=== PATIENT | male | born 1970 | race Caucasian/White ===

== ENCOUNTER 2022-07-27 21:29 | Observation (INO) ==
[2022-07-27 22:02] VITALS: BMI 37.0
--- NOTE | 2022-07-27 22:09 | DR.CP ---
HPI Time Seen Time Seen by Provider: 07/27/22 22:08 PCP Primary Care Physician: STEPHEN KHAN IN [place] Complaint Chief Complaint Doctor Comments: 51 y/o male presents for evaluation. Thinks his was bitten by an 6 days ago, was in the [place], left axillary region. Had a small red spot, tried to pop it the next day, got some material out. Started to rapidly increased in size and pain the next day. Was seen at an urgent care 2 days ago , was started on clindamycin and sulfa antibiotics. Keeps getting larger, more painful. Pain is sharp, constant, does not radiate. + worse with palpation and moving. Nothing makes it better. + running fevers, having nausea and vomiting. No prior h/o abscesses or MRSA infections. Is a diabetic. Chief Complaint:: PT AMBULATORY IN ED WITH C/O ANT BITE THAT IS VERY PAINFUL AND KEEPS GETTING BIGGER DISPITE BEING ON ANTIBIOTICS. ALSO C/O CHEST PAIN AND NAUSEA. COVID-19 Coronavirus risk:travel/contact w/high risk person: No Has patient experienced Coronavirus symptoms: No Reviewed Nurses Notes Review: Yes Source History Provided: Patient Mode of Arrival Mode of Arrival: Ambulatory Timing Onset of Chief Complaint: 07/21/22 PMH PMH Past Medical History: Yes Past Medical History: Arthritis, Coronary Artery Disease, Depression, Diabetes, Dyslipidemia, Migraines, GERD, Hypertension and [place] Past Medical History Comment: ADD Past Surgical History: Yes Surgical History: CABG/Valve Surgery, Ortho Surgery and Tonsillectomy Past Surgical History Comment: BILATERAL KNEES LEFT ANKLE Family History History of Family Medical Conditions: Yes Family Medical History: Diabetes Mellitus, Cancer, [place], Coronary Artery Disease, Heart Failure and Hypertension Social History Does patient currently use any type of tobacco product: No Have you used tobacco products in the last 12 months: No Type of Tobacco Use: None Does any household member use tobacco: No Alcohol Use: Occasionally Do you use any recreational Drugs:: Yes (MARIJUANA) Lives With: Family Lives Where: Home Travel Risk Coronavirus risk:travel/contact w/high risk person: No Has patient experienced Coronavirus symptoms: No Infectious screening In the last 2 months have you had wt loss of >10#?: NO Have you had fever, night sweats or hemotysis?: No Have you traveled outside the country in the last 6 months?: No Isolation: Standard ROS Review of Systems Constitutional: Chills and Fever Eyes: No Symptoms Reported ENTM: No Symptoms Reported Respiratoy: No Symptoms Reported Cardiovascular: No Symptoms Reported Gastrointestinal/Abdominal: Nausea and Vomiting Genitourinary: No Symptoms Reported Neurological: Weakness Musculoskeletal: No Symptoms Reported Integumentary: See HPI Hematologic/Lymphatic: No Symptoms Reported All Other Systems: Reviewed and Negative PE Vitals Vitals: Temperature 97.9 F Pulse Rate 73 Respiratory Rate 18 Blood Pressure 128/70 O2 Sat by Pulse Oximetry 97 General General Appearance: Alert and Other (appears uncomfortable. ) Eyes Eye exam: PERRL and EOMI ENT ENT Exam: Mucous Membranes Moist Chest Chest Inspection: Abscess (+ large, oblong, left upper lateral chest wall, beneath left axilla. Is raised, very tender. Hot and erythematous. ) Abdominal Exam Abdominal Exam: Soft; negative Tenderness Extremities Extremities Exam: Normal Inspection; negative Edema Back Back Exam: Normal Inspection Neurologic Neurological Exam: Alert, Oriented X3 and CN II-XII Intact; negative Motor Sensory Deficit Skin Skin Exam: Warm and Dry COURSE Treatment Treatment: 51 y/o male with a large abscess of the left upper lateral chest wall, despite double antibiotics over the past two days, 15 cms x 5 cms. Appears to need drainage in the OR (very tender, as well as large). W/u initiated. Pt gien IV fluids, IV dilaudid and Zofran. 2302 - labs acceptable. WBC 11K. Will continue IV clindamycin for now, recommend admission for IV antibiotcs, and for the OR tomorrow. Consulted with Dr London, surgery. Will admit to medicine, Dr. Dia. ROR Labs Reviewed Result Diagrams: 07/27/22 22:30 07/27/22 22:30 Laboratory: WBC 11.9 X10^3/uL (3.6-10.0) H 07/27/22 22:30 RBC 5.67 X10^6/uL (4.7-6.0) 07/27/22 22:30 Hgb 15.5 g/dL (13.5-18.0) 07/27/22 22:30 Hct 46.5 % (42.0-54.0) 07/27/22 22:30 MCV 82.0 fL (80.0-100.0) 07/27/22 22:30 MCH 27.4 pg (27.0-34.0) 07/27/22 22: MCHC 33.4 g/dL (33.0-35.0) 07/27/22: RDW 15.3 % (11.6-16.5) 07/27/22: Plt Count 196 X10^3/uL (150.0-450.0) 07/27/22: MPV 9.4 fL (7.4-11.0) 07/27/22 22: Neut % (Auto) 63.7 % (42.0-75.0) 07/27/22 22: Lymph % (Auto) 17.9 % (21.0-51.0) L 07/27/22: [place] % (Auto) 13.4 % (0.0-13.0) H 07/27/22: Eos % (Auto) 4.1 % (0.9-2.9) H 07/27/22: Baso % (Auto) 0.9 % (0.2-1.0) 07/27/22: Neut # (Auto) 7.6 x10^3/uL (2.2-4.8) H 07/27/22: Lymph # (Auto) 2.1 X10^3/uL (1.3-2.9) 07/27/22: [place] # (Auto) 1.6 x10^3/uL (0.3-0.8) H 07/27/22: Eos # (Auto) 0.5 x10^3/uL (0.0-0.2) H 07/27/22: Baso # (Auto) 0.1 X10^3/uL (0.0-0.1) 07/27/22: Absolute Nucleated RBC 0.0 /100WBC 07/27/22: Sodium 136 mmol/L (136-145) 07/27/22 22: Corrected Sodium 137 mmol/L (136-145) 07/27/22: Potassium 4.2 mmol/L (3.5-5.1) 07/27/22: Chloride 98 mmol/L (98-107) 07/27/22 22:30 Carbon Dioxide 31.7 mmol/L (21-32) 07/27/22 22:30 BUN 24 mg/dL (7-18) H 07/27/22 22:30 Creatinine 1.83 mg/dL (0.70-1.30) H 07/27/22 22:30 Est GFR (MDRD) Af Amer 50 (>60) L 07/27/22 22:30 Est GFR (MDRD) Non-Af 42 (>60) L 07/27/22 22:30 Glucose 137 mg/dL (65-99) H 07/27/22 22:30 Lactic Acid 1.9 mmol/L (0.4-2.0) 07/27/22 22:30 Calcium 8.6 mg/dL (8.5-10.1) 07/27/22 22:30 Corrected Calcium 9.2 mg/dL (8.5-10.1) 07/27/22 22:30 Total Bilirubin 0.30 mg/dL (0.2-1.0) 07/27/22 22:30 AST 24 Units/L (15-37) 07/27/22 22:30 ALT 22 Units/L (12-78) 07/27/22 22:30 Alkaline Phosphatase 109 Units/L (46-116) 07/27/22 22:30 Total Protein 7.4 g/dL (6.4-8.2) 07/27/22 22:30 Albumin 3.3 g/dL (3.4-5.0) L 07/27/22 22:30 Globulin 4.1 g/dL (2.5-4.5) 07/27/22 22:30 Albumin/Globulin Ratio 0.8 Ratio (1.1-2.1) L 07/27/22 22:30 Opioid Opioid Risk Tool Age ([place] if 16-45): No History of Preadolescent Sexual Abuse: No Total: 0 Total Score Risk Category: Low Risk Copyright: Corey HAM predicting aberrant behaviors Discharge Plan Diagnosis Discharge Problem: Abscess of chest wall Discharge Plan Patient Disposition: 09 ADMITTED INPATIENT Condition: Stable Orders to Discharge Patient Discharge Orders: Transfer (Routine); Ordered 07/27/22 Ordered By: Luis Bishop
[2022-07-27] MEDS ORDERED: NS 1,000 ML IV 1,000 ML IV ONE (22:19)
[2022-07-27] MEDS ORDERED: NS 1,000 ML IV 1,000 ML ONE (22:22)
--- NOTE | 2022-07-27 22:51 | RAD ---
STUDY: FRONTAL VIEW CHESTCOMPARISON: NoneHISTORY: LEFT CHEST WALL ABSCESS (PRE-OP)FINDINGS:[Status post midline sternotomy]No focal consolidation is seen.The heart size is within normal limits.The mediastinum is unremarkable.There is no evidence of pleural effusion or gross pneumothorax.The trachea is midline.IMPRESSION:1. No focal consolidation is seen.2. The heart size is normal.Electronically signed by: Sunil Crowley (July 27, 2022 22:50:22)
[2022-07-27 22:55] LABS: BASOPHILS # (AUTO) 0.1 X10^3/uL (0.0-0.1); BASOPHILS % (AUTO) 0.9 % (0.2-1.0); EOSINOPHILS # (AUTO) 0.5 x10^3/uL (0.0-0.2); EOSINOPHILS % (AUTO) 4.1 % (0.9-2.9); HEMATOCRIT 46.5 % (42.0-54.0); HEMOGLOBIN 15.5 g/dL (13.5-18.0); LYMPHOCYTES # (AUTO) 2.1 X10^3/uL (1.3-2.9); LYMPHOCYTES % (AUTO) 17.9 % (21.0-51.0); MEAN CORPUSCULAR HEMOGLOBIN 27.4 pg (27.0-34.0); MEAN CORPUSCULAR HGB CONC 33.4 g/dL (33.0-35.0); MEAN PLATELET VOLUME 9.4 fL (7.4-11.0); MONOCYTES # (AUTO) 1.6 x10^3/uL (0.3-0.8); MONOCYTES % (AUTO) 13.4 % (0.0-13.0); NEUTROPHILS # (AUTO) 7.6 x10^3/uL (2.2-4.8); NEUTROPHILS % (AUTO) 63.7 % (42.0-75.0); PLATELET COUNT 196 X10^3/uL (150.0-450.0); RED BLOOD COUNT 5.67 X10^6/uL (4.7-6.0); RED CELL DISTRIBUTION WIDTH 15.3 % (11.6-16.5); WHITE BLOOD COUNT 11.9 X10^3/uL (3.6-10.0)
[2022-07-27] MEDS ORDERED: ZOFRAN INJ 4 MG VIAL IVP ONE (23:04)
[2022-07-27] MEDS ORDERED: DILAUDID INJ IVP ONE (23:04)
[2022-07-27 23:06] LABS: ALBUMIN 3.3 g/dL (3.4-5.0); CALCIUM 8.6 mg/dL (8.5-10.1); CARBON DIOXIDE 31.7 mmol/L (21-32); COR CA(FOR HYPOALB) 9.2 mg/dL (8.5-10.1); CREATININE 1.83 mg/dL (0.70-1.30); POTASSIUM 4.2 mmol/L (3.5-5.1); TOTAL PROTEIN 7.4 g/dL (6.4-8.2)
[2022-07-27] MEDS ORDERED: DILAUDID INJ ONE (23:07)
[2022-07-27] MEDS ORDERED: ZOFRAN INJ 4 MG VIAL ONE (23:07)
[2022-07-27 23:18] LABS: LACTIC ACID 1.9 mmol/L (0.4-2.0)
[2022-07-28] MEDS ORDERED: PROTONIX INJ 40 MG VIAL IVP ONE (00:56)
[2022-07-28] MEDS ORDERED: PROTONIX INJ 40 MG VIAL ONE (01:04)
[2022-07-28] MEDS ORDERED: CLEOCIN 600 MG IV PREMIX 600 MG/50 ML BAG IV ONE ×2 (01:15→01:17)
[2022-07-28] MEDS ORDERED: D5 1/2 NS 1,000 ML 1,000 ML IV SCH (01:50)
[2022-07-28] MEDS ORDERED: NORCO 10/325 TAB PO PRN (01:50)
[2022-07-28 01:59] VITALS: BP 120/68
[2022-07-28] MEDS ORDERED: NEURONTIN CAP 300 MG PO SCH (06:00)
[2022-07-28] MEDS ORDERED: CLEOCIN 600 MG IV PREMIX 600 MG/50 ML BAG IV SCH (08:00)
[2022-07-28] MEDS ORDERED: LISDEXAMFETAMINE 50 MG PO SCH (09:00)
[2022-07-28] MEDS ORDERED: AMARYL TAB 4 MG PO SCH (09:00)
[2022-07-28] MEDS ORDERED: GLUCOPHAGE PO SCH (09:00)
[2022-07-28] MEDS ORDERED: LEXAPRO PO SCH (09:00)
[2022-07-28] MEDS ORDERED: ZYLOPRIM PO SCH (09:00)
[2022-07-28] MEDS ORDERED: TOPROL XL PO SCH (09:00)
[2022-07-28] MEDS ORDERED: CELEBREX PO SCH (09:00)
[2022-07-28] MEDS ORDERED: ZESTRIL TAB 5 MG PO SCH (09:00)
--- NOTE | 2022-07-28 14:49 | DR.SSS ---
SHORT STAY SUMMARY Admission Date Date of Admission: 07/28/22 Discharge Date Discharge Date: 07/28/22 Admission Diagnoses Admission Diagnoses: 1. Left anterior chest and left axillary region with abscess 2. Chest pain 3. Nausea 4. Diabetes mellitus type 2 5. Hypogonadism in male 6. Hypercholesteremia 7. Hypertension 8. Adult ADD 9. Depression Discharge Diagnoses Discharge Diagnoses: 1. Patient left AMA 2. Left anterior chest and left axillary region with abscess 3. Chest pain 4. Nausea Chief Complaint Chief Complaint: Ant bite that is very painful and keeps getting bigger in the left axilla History of Present Illness History of Present Illness: This is a 51-year-old white male who presents to the emergency department complaining of ant bite to the left axilla number of days back. A few days ago he said it was like a pimple he popped and got out some white substance but since then has been getting larger more painful redder and harder. He went to the urgent care center and was put on clindamycin and Ba ctrim for treatment. He reports that the antibiotics did not help to get any better. Patient was seen in the ER here in [facility] and was subsequent admitted to the hospital. Unfortunately the patient did not stay upstairs very long as he decided to leave he took his IV out on his own and left AMA. Patient left before I got there this morning to make hospital rounds so I never even saw him. Past Medical History Past Medical History: Arthritis, Coronary Artery Disease, Depression, Diabetes, Dyslipidemia, Migraines, GERD, Hypertension and [place] Past Surgical History Surgical History: CABG/Valve Surgery, Ortho Surgery and Tonsillectomy Allergies Allergies Allergy/AdvReac Type Severity Reaction Status Date / Time Barbiturates Allergy Verified 07/27/22 22:03 codeine Allergy Verified 07/27/22 22:03 BENZOS Allergy Uncoded 07/27/22 22:03 Medications Home Medications: Barbiturates Allergy (Verified 07/27/22 22:03) codeine Allergy (Verified 07/27/22 22:03) BENZOS Allergy (Uncoded 07/27/22 22:03) CONTINUE taking the following medications allopurinol 300 mg tablet 1 tab PO QDAY 07/27/22 [History] celecoxib 200 mg capsule 1 cap PO QDAY 07/27/22 [History] clindamycin HCl 300 mg capsule 1 cap PO BID 07/27/22 [History] cyclobenzaprine 10 mg tablet 1 tab PO QPM 07/27/22 [History] escitalopram oxalate 20 mg tablet 1 tab PO QDAY 07/27/22 [History] gabapentin 300 mg capsule 1 cap PO TID 07/27/22 [History] glimepiride 2 mg tablet 1 tab PO BID 07/27/22 [History] hydrocodone 10 mg-acetaminophen 325 mg tablet 1 tab PO TID PRN 07/27/22 [History] lisdexamfetamine 50 mg capsule (Vyvanse) 1 cap PO QAM 07/27/22 [History] lisinopril 5 mg tablet 1 tab PO QDAY 07/27/22 [History] metformin 500 mg tablet 2 tab PO BID 07/27/22 [History] metoprolol succinate 25 mg tablet,extended release 24 hr 1 tab PO QDAY 07/27/22 [History] rosuvastatin 20 mg tablet 1 tab PO QPM 07/27/22 [History] sulfamethoxazole 800 mg-trimethoprim 160 mg tablet (Bactrim DS) 1 tab PO BID 07/27/22 [History] tadalafil 20 mg tablet 1 tab PO PRN PRN 07/27/22 [History] testosterone cypionate 200 mg/mL intramuscular oil 1 ml IM Q2W 07/27/22 [History] icosapent ethyl 1 gram capsule (Vascepa) 2 cap PO BID 07/28/22 [History] Family History Family Medical History: Diabetes Mellitus, Cancer, [place], Coronary Artery Disease, Heart Failure and Hypertension Social History Does patient currently use any type of tobacco product: No Have you used tobacco products in the last 12 months: No Type of Tobacco Use: None Does any household member use tobacco: No Alcohol Use: Occasionally Physical Exam Vital Signs: Last Vital Signs Temp 98.9 F 07/28/22 01:58 Pulse 70 07/28/22 01:58 Resp 20 07/28/22 02:00 BP 120/68 07/28/22 01:58 Pulse Ox 97 07/28/22 01:58 O2 Del Method Room Air 07/28/22 02:00 Labs Labs: Laboratory Last Values WBC 11.9 X10^3/uL (3.6-10.0) H 07/27/22 22:30 RBC 5.67 X10^6/uL (4.7-6.0) 07/27/22 22: Hgb 15.5 g/dL (13.5-18.0) 07/27/22: Hct 46.5 % (42.0-54.0) 07/27/22: MCV 82.0 fL (80.0-100.0) 07/27/22: MCH 27.4 pg (27.0-34.0) 07/27/22: MCHC 33.4 g/dL (33.0-35.0) 07/27/22: RDW 15.3 % (11.6-16.5) 07/27/22: Plt Count 196 X10^3/uL (150.0-450.0) 07/27/22: MPV 9.4 fL (7.4-11.0) 07/27/22: Neut % (Auto) 63.7 % (42.0-75.0) 07/27/22: Lymph % (Auto) 17.9 % (21.0-51.0) L 07/27/22: [place] % (Auto) 13.4 % (0.0-13.0) H 07/27/22: Eos % (Auto) 4.1 % (0.9-2.9) H 07/27/22: Baso % (Auto) 0.9 % (0.2-1.0) 07/27/22: Neut # (Auto) 7.6 x10^3/uL (2.2-4.8) H 07/27/22 22: Lymph # (Auto) 2.1 X10^3/uL (1.3-2.9) 07/27/22 22: [place] # (Auto) 1.6 x10^3/uL (0.3-0.8) H 07/27/22: Eos # (Auto) 0.5 x10^3/uL (0.0-0.2) H 07/27/22 22: Baso # (Auto) 0.1 X10^3/uL (0.0-0.1) 07/27/22: Absolute Nucleated RBC 0.0 /100WBC 07/27/22 22:30 Sodium 136 mmol/L (136-145) 07/27/22 22:30 Corrected Sodium 137 mmol/L (136-145) 07/27/22 22:30 Potassium 4.2 mmol/L (3.5-5.1) 07/27/22 22:30 Chloride 98 mmol/L (98-107) 07/27/22 22:30 Carbon Dioxide 31.7 mmol/L (21-32) 07/27/22 22:30 BUN 24 mg/dL (7-18) H 07/27/22 22:30 Creatinine 1.83 mg/dL (0.70-1.30) H 07/27/22 22:30 Est GFR (MDRD) Af Amer 50 (>60) L 07/27/22 22:30 Est GFR (MDRD) Non-Af 42 (>60) L 07/27/22 22:30 Glucose 137 mg/dL (65-99) H 07/27/22 22:30 Lactic Acid 1.9 mmol/L (0.4-2.0) 07/27/22 22:30 Calcium 8.6 mg/dL (8.5-10.1) 07/27/22 22: Corrected Calcium 9.2 mg/dL (8.5-10.1) 07/27/22:30 Total Bilirubin 0.30 mg/dL (0.2-1.0) 07/27/22 22:30 AST 24 Units/L (15-37) 07/27/22 22:30 ALT 22 Units/L (12-78) 07/27/22:30 Alkaline Phosphatase 109 Units/L (46-116) 07/27/22 22:30 Total Protein 7.4 g/dL (6.4-8.2) 07/27/22 22: Albumin 3.3 g/dL (3.4-5.0) L 07/27/22: Globulin 4.1 g/dL (2.5-4.5) 07/27/22 22:30 Albumin/Globulin Ratio 0.8 Ratio (1.1-2.1) L 07/27/22 22:30 Hospital Course Hospital Course: Patient was admitted last night for left anterior chest and left axillary abscess. We were planning on having general surgery see him today to do I&D. Unfortunately the patient decided that he was going to leave last night. He took his IV out and left AMA. He was gone before I arrived for morning rounds today. Discharge Medications Discharge Medications: Home Medication List allopurinol 300 mg tablet 1 tab PO QDAY 07/27/22 [History] celecoxib 200 mg capsule 1 cap PO QDAY 07/27/22 [History] clindamycin HCl 300 mg capsule 1 cap PO BID 07/27/22 [History] cyclobenzaprine 10 mg tablet 1 tab PO QPM 07/27/22 [History] escitalopram oxalate 20 mg tablet 1 tab PO QDAY 07/27/22 [History] gabapentin 300 mg capsule 1 cap PO TID 07/27/22 [History] glimepiride 2 mg tablet 1 tab PO BID 07/27/22 [History] hydrocodone 10 mg-acetaminophen 325 mg tablet 1 tab PO TID PRN 07/27/22 [History] lisdexamfetamine 50 mg capsule (Vyvanse) 1 cap PO QAM 07/27/22 [History] lisinopril 5 mg tablet 1 tab PO QDAY 07/27/22 [History] metformin 500 mg tablet 2 tab PO BID 07/27/22 [History] metoprolol succinate 25 mg tablet,extended release 24 hr 1 tab PO QDAY 07/27/22 [History] rosuvastatin 20 mg tablet 1 tab PO QPM 07/27/22 [History] sulfamethoxazole 800 mg-trimethoprim 160 mg tablet (Bactrim DS) 1 tab PO BID 07/27/22 [History] tadalafil 20 mg tablet 1 tab PO PRN PRN 07/27/22 [History] testosterone cypionate 200 mg/mL intramuscular oil 1 ml IM Q2W 07/27/22 [History] icosapent ethyl 1 gram capsule (Vascepa) 2 cap PO BID 07/28/22 [History] Prescriptions: Discharge Plan Discharge Plan Patient Disposition: 07 AGAINST MEDICAL ADVICE Condition: Stable Health Concerns: Post Hospitalization: new medications and changes needed to prevent readmission or further decline. Pt educated and given instructions on all concerns. Plan of Treatment: Continue with present treatment and follow up plan. Pt is to keep follow up appointment as instructed and take medications as ordered. Prescriptions: No Action celecoxib 200 mg capsule 1 cap PO QDAY cyclobenzaprine 10 mg tablet 1 tab PO QPM metformin 500 mg tablet 2 tab PO BID clindamycin HCl 300 mg capsule 1 cap PO BID sulfamethoxazole-trimethoprim [Bactrim DS] 800-160 mg tablet 1 tab PO BID hydrocodone-acetaminophen 10-325 mg tablet 1 tab PO TID PRN glimepiride 2 mg tablet 1 tab PO BID gabapentin 300 mg capsule 1 cap PO TID allopurinol 300 mg tablet 1 tab PO QDAY lisinopril 5 mg tablet 1 tab PO QDAY metoprolol succinate 25 mg tablet extended release 24 hr 1 tab PO QDAY testosterone cypionate 200 mg/mL oil 1 ml IM Q2W escitalopram oxalate 20 mg tablet 1 tab PO QDAY rosuvastatin 20 mg tablet 1 tab PO QPM tadalafil 20 mg tablet 1 tab PO PRN PRN Vyvanse 50 mg capsule 1 cap PO QAM icosapent ethyl [Vascepa] 1 gram capsule 2 cap PO BID Follow ups/Referrals Follow ups/Referrals: ,Misc [Primary Care Provider] - 3 days
[2022-07-28] MEDS ORDERED: SNACK - Diabetic Appropriate PO SCH (20:00)
[2022-07-28] MEDS ORDERED: CRESTOR TAB 10 MG PO SCH (21:00)
[2022-07-28] MEDS ORDERED: FLEXERIL TAB 10 MG PO SCH (21:00)
== END 2022-07-28 02:10 | disposition left against medical advice (07) ==
LOC: MED/SURG 21:38 → ER 21:38 → MED/SURG 07-28 01:55
PROVIDERS: ADMIT Family Medicine; ATTEND Family Medicine
DX: Z53.29 Procedure and treatment not carried out because of patient's decision for other reasons; K21.9 Gastro-esophageal reflux disease without esophagitis; F32.89 Other specified depressive episodes; F98.8 Other specified behavioral and emotional disorders with onset usually occurring in childhood and adolescence; L02.412 Cutaneous abscess of left axilla; E23.0 Hypopituitarism; W57.XXXA Bitten or stung by nonvenomous insect and other nonvenomous arthropods, initial encounter; R07.89 Other chest pain; E78.2 Mixed hyperlipidemia; I25.10 Atherosclerotic heart disease of native coronary artery without angina pectoris; S40.862A Insect bite (nonvenomous) of left upper arm, initial encounter; I10 Essential (primary) hypertension; E11.65 Type 2 diabetes mellitus with hyperglycemia